=== PATIENT | male | born 1950 ===

== ENCOUNTER → 2016-11-25 | Outpatient (CLI) | payer MEDICARE, OTHER ==
--- NOTE | 2016-11-25 09:11 | RAD ---
EXAM DESCRIPTION: Pelvis one-view CLINICAL HISTORY: 66 y/o ,M, HIP PAIN COMPARISON: None. IMPRESSION: No active sacroiliitis. No fracture or focal destructive lesion. Mild osteoarthrosis of both hips. No evidence of osteonecrosis. No acute osseous abnormality Electronically signed by: Carlos Landry MD 11/25/2016 09:08
--- NOTE | 2016-11-25 09:11 | RAD ---
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 There is subtle 1 or 2 mm lucency below the medial side of the tibial prosthesis seen on AP view compared to prior exam that could represent some degree of mild loosening. No other areas of lucency are seen. There has been resolution of the previously noted soft tissue emphysema related to the postop exam. Mild increased density in the suprapatella bursa region is seen suggesting small joint effusion. Electronically signed by: Carter Carson MD 11/25/2016 09:08
== END ==
LOC: RAD 08:16
PROVIDERS: ATTEND Orthopaedic Surgery
DX: M25.561 Pain in right knee (principal); M25.551 Pain in right hip; M16.0 Bilateral primary osteoarthritis of hip; Z96.651 Presence of right artificial knee joint

== ENCOUNTER → 2017-02-04 | Outpatient (CLI) | payer MEDICARE, OTHER | END | disposition home or self-care (01) | LOC: GMAB 10:59 | PROVIDERS: ATTEND Family Medicine | DX: Z12.5 Encounter for screening for malignant neoplasm of prostate (principal); R53.83 Other fatigue; I10 Essential (primary) hypertension | CPT/HCPCS: 84403; 84443; G0103 ==

== ENCOUNTER 2017-05-27 05:52 | Day surgery (SDC) | payer MEDICARE, OTHER ==
[2017-05-27] MEDS ORDERED: LACTATED RINGERS 1,000 ML ONE (06:00)
[2017-05-27] MEDS ORDERED: fentaNYL CITRATE INJ 50 MCG/ML AMP ONE (07:00)
[2017-05-27] MEDS ORDERED: PROPOFOL 200 MG/20 ML VIAL IV ONE (07:00)
[2017-05-27] MEDS ORDERED: MIDAZOLAM INJ 5 MG/5 ML VIAL ONE (07:00)
[2017-05-27] MEDS ORDERED: LACTATED RINGERS 1,000 ML IVS ONE (08:56)
--- NOTE | 2017-05-27 09:16 | OP ---
DATE OF PROCEDURE: 05/27/17 PREPROCEDURE DIAGNOSIS: 1. Average risk colorectal cancer screening. POSTPROCEDURE DIAGNOSIS: 1. Diverticulosis. 2. Internal hemorrhoids. PROCEDURE: 1. Colonoscopy. SURGEON: Nino Cagle MD. SEDATION: Monitored anesthesia care. ESTIMATED BLOOD LOSS: 0 mL. PROCEDURE: Informed consent was obtained prior to sedation. The preprocedure cardiopulmonary assessment was satisfactory. The patient was brought to the Endoscopy Suite and placed in the left lateral decubitus position. The patient was then sedated by the anesthesia team. The tip of the Olympus colonoscope was inserted into the rectum and advanced under direct visualization to the cecum as identified by the presence of the appendiceal orifice and ileocecal valve. Preparation of the colon was good. Upon reaching the cecum, the endoscope was slowly withdrawn from the patient with careful attention paid to the entire colonic mucosa for the identification of any small flat polyps. There were no polyps in the entire colon. Scattered throughout the entire colon was diverticulosis. Upon withdrawal of the endoscope to the rectum, a retroflexed view of the anal verge showed small, non-bleeding internal hemorrhoids. The endoscope was then withdrawn from the patient and the procedure terminated. RECOMMENDATION: 1. Discharge the patient home with escort. 2. Advance to regular diet. 3. Continue present medications. 4. Repeat colonoscopy for screening purposes is recommended in ten years. #[id number] [facility]
[2017-05-27 14:02] VITALS: BP 156/83; TEMP 98.4; O2SAT 93
== END 2017-05-27 09:40 | disposition home or self-care (01) ==
LOC: AMB 05:52
PROVIDERS: ATTEND Internal Medicine Gastroenterology
DX: Z12.11 Encounter for screening for malignant neoplasm of colon (principal); K57.30 Diverticulosis of large intestine without perforation or abscess without bleeding; K64.8 Other hemorrhoids; I10 Essential (primary) hypertension; E78.5 Hyperlipidemia, unspecified; E66.9 Obesity, unspecified; Z68.31 Body mass index [BMI] 31.0-31.9, adult; Z87.891 Personal history of nicotine dependence; Z79.82 Long term (current) use of aspirin; Z79.899 Other long term (current) drug therapy
CPT/HCPCS: 00810; G0121; J2250; J3010; J3490; J7120